=== PATIENT | male | born 1965 | race Caucasian/White ===

== ENCOUNTER → 2018-09-14 10:18 | Outpatient (CLI) | payer BC ==
[2018-09-14 12:16] LABS: CHOL - HDL RATIO 4.5 ratio (2.3-4.9); LDL-HDL RATIO 2.8 ratio (1.5-3.5)
== END | disposition home or self-care (01) ==
LOC: D.LABREF 10:18
PROVIDERS: Orthopaedic Surgery
DX: Z00.00 Encounter for general adult medical examination without abnormal findings (principal)